=== PATIENT | female | born 1990 | race Caucasian/White ===

== ENCOUNTER 2017-05-01 20:24 | Emergency (ER) | payer OTHER ==
[~2017-05-01] VITALS: Ht 162.6 cm; Wt 75.7 kg
[2017-05-01] MEDS ORDERED: NAPR500T PO (21:55)
[2017-05-01 22:03] VITALS: BP 118/70
--- NOTE | 2017-05-02 06:32 | REP ---
Clinical: Trauma. Technique: AP, lateral views of the left humerus. Findings: The osseous structures and joint spaces are intact and normal. There is no evidence for acute fracture or dislocation. Surrounding soft tissues are unremarkable. No subcutaneous emphysema or radiodense foreign body. Impression: Normal examination . No acute fracture or dislocation. Signed by Rigo Pascual MD 05/02/2017 01:17 A
== END 2017-05-01 22:15 | disposition home or self-care (01) ==
LOC: M ED 20:24
DX: S40.022A Contusion of left upper arm, initial encounter (principal); W22.8XXA Striking against or struck by other objects, initial encounter; Y92.410 Unspecified street and highway as the place of occurrence of the external cause; Y93.9 Activity, unspecified; Y99.9 Unspecified external cause status; Z88.0 Allergy status to penicillin

== ENCOUNTER 2017-06-07 10:59 | Emergency (ER) | payer OTHER ==
[~2017-06-07] VITALS: Ht 162.6 cm; Wt 71.4 kg
[~2017-06-07 10:59] MED LIST: NAPR500T PO
[2017-06-07] MEDS ORDERED: IBUPROFEN 600 MG TAB PO ONE (11:45)
[2017-06-07] MEDS ORDERED: NAPR500T PO (13:12)
[2017-06-07] MEDS ORDERED: ACET30TAB PO (13:12)
[2017-06-07 13:26] VITALS: BP 106/62
--- NOTE | 2017-06-07 13:38 | REP ---
Left rib series: Five views including PA chest. History: Left posterior lower rib injury. Pain. Comparison study February 13, 2007. Findings: There are granulomatous lymph node calcifications along the left lower mediastinum, unchanged from the 2007 prior study. PA chest radiograph is otherwise unremarkable. Cardiomediastinal silhouette is unchanged. There is a small bone island in the anterior end of the right 1st rib. Mediastinum is not widened. Pleural angles are sharp. No pneumothorax is seen. Multiple views of the left rib cage show no visible rib fracture or incidental bony destructive lesion. Impression: Old granulomatous lymph node calcifications. No active disease. Otherwise negative left rib series. Signed by Samuel Maciel MD 06/07/2017 02:48 P
== END 2017-06-07 13:30 | disposition home or self-care (01) ==
LOC: M ED 11:54
DX: S30.0XXA Contusion of lower back and pelvis, initial encounter (principal); W20.8XXA Other cause of strike by thrown, projected or falling object, initial encounter; Y92.099 Unspecified place in other non-institutional residence as the place of occurrence of the external cause; Y93.89 Activity, other specified; Y99.9 Unspecified external cause status; Z88.0 Allergy status to penicillin

== ENCOUNTER → 2017-06-20 | Outpatient (CLI) | payer OTHER ==
[~2017-06-20] MED LIST changes: +ACET30TAB PO; +CONRAY-43 43% 50ML VIAL (Q9960) As Ordered ONE
--- NOTE | 2017-06-20 15:14 | REP ---
Right hip arthrogram The procedure was performed under the direction supervision of Dr. Maciel. The benefits and risks including but not limited to pain, infection, bleeding and anaphylaxis were explained to the patient and informed consent was obtained. The right femoral neck was localized using fluoroscopic guidance. Skin was prepped and draped in a sterile fashion. 1% lidocaine was used as a local anesthetic. Using fluoroscopic guidance a 22 gauge spinal needle was inserted and advanced to the femoral neck. 0.5 ml of Conray 43 was injected to verify placement. 11 ml of a solution containing 20 ml of sterile saline and 0.15 ml of ProHance was injected into the joint. The needle was removed and the patient was taken to MRI for postprocedural imaging. The the patient tolerated the procedure well and there were no immediate complications. 2 seconds of fluoro time was utilized for this procedure. Reviewed by ROBBIE Evans 06/20/2017 02:40 PSigned by Samuel Maciel MD 06/20/2017 03:06 P
--- NOTE | 2017-06-20 15:42 | REP ---
MR right hip arthrogram : History: Right hip pain. Comparison studies: Comparison MRI study [facility] March 29, 2016. Comparison radionuclide bone scan February 14, 2016. Technique: Precontrast imaging shows coronal T1 and T2-weighted scans of both hips. Postcontrast small field of view high resolution axial, coronal and sagittal images are acquired in T1 and T2-weighted scans with fat saturation. MR arthrographic findings: Pre injection MR imaging shows normal cortical and medullary bone signal intensity in the proximal femurs bilaterally. There is no evidence of significant joint effusion. No evidence of avascular necrosis is seen. No pelvic mass, adenopathy or abdominal wall defect is seen. Post injection MR imaging shows good filling and enhancement. Ligamentum teres is intact. No loose body is seen. Head and neck junction morphology is normal. There is a tiny bubble of injected air at the anterior edge of the intact cartilaginous labrum. No labral tear is seen. On T2-weighted scans there is some hyperintense T2 fluid at the tendon insertion at the proximal tip of the greater trochanter question tendonitis. No skeletal muscle edema is appreciated. No juxtaarticular cyst or mass is seen. Impression: Small quantity of edema or inflammation at the tendon insertion on the greater trochanter on the right. No evidence of labral tear or bony lesion. Signed by Samuel Maciel MD 06/20/2017 04:35 P
== END ==
LOC: M RADPRO 07:01
PROVIDERS: ATTEND Student in an Organized Health Care Education/Training Program
DX: M25.551 Pain in right hip (principal); M25.451 Effusion, right hip; Z88.0 Allergy status to penicillin
CPT/HCPCS: 27093; 73723; 77002; A9576; Q9960